=== PATIENT | female | born 1945 | race Caucasian/White ===

== ENCOUNTER 2017-03-21 07:06 | Outpatient (CLI) | payer OTHER ==
[~2017-03-21 07:06] MED LIST: TIZANIDINE HCL2 MG PO
== END 2017-03-21 07:18 | disposition home or self-care (01) ==
LOC: NUCLEAR 07:06
DX: R06.00 Dyspnea, unspecified (principal); R07.9 Chest pain, unspecified; I20.9 Angina pectoris, unspecified
CPT/HCPCS: 78452; 93017; A9500

== ENCOUNTER 2017-12-24 15:52 | Outpatient (CLI) | payer OTHER | END 2017-12-24 15:56 | disposition home or self-care (01) | LOC: RAD 15:52 | DX: M25.551 Pain in right hip (principal); M25.552 Pain in left hip; M25.561 Pain in right knee; M25.562 Pain in left knee; M25.512 Pain in left shoulder ==

== ENCOUNTER 2018-01-01 10:01 | Outpatient (CLI) | payer OTHER | END 2018-01-01 19:16 | disposition home or self-care (01) | LOC: LAB 10:01 | DX: H20.013 Primary iridocyclitis, bilateral (principal) ==

== ENCOUNTER 2018-01-02 12:30 | Outpatient (CLI) | payer OTHER | END 2018-01-02 13:40 | disposition home or self-care (01) | LOC: RAD 12:30 | DX: H20.013 Primary iridocyclitis, bilateral (principal) ==

== ENCOUNTER 2018-02-07 21:05 | Emergency (ER) | payer OTHER ==
[~2018-02-07] VITALS: Ht 157.5 cm; Wt 63.5 kg
[2018-02-07] MEDS ORDERED: AVAPRO300 MG (21:36)
[2018-02-07] MEDS ORDERED: ELIQUIS5 MG (21:36)
[2018-02-07] MEDS ORDERED: DILTIAZEM 24HR240 MG (21:37)
[2018-02-07] MEDS ORDERED: GLIPIZIDE XL2.5 MG (21:37)
[2018-02-07] MEDS ORDERED: RESTORIL30 M1 (21:38)
[2018-02-07] MEDS ORDERED: LIPITOR20 MG (21:38)
[2018-02-07] MEDS ORDERED: MILLIPRED DP5 M1 (21:40)
[2018-02-07] MEDS ORDERED: COMBIGAN EYE DRO5 ML (21:40)
[2018-02-07] MEDS ORDERED: TUSSI PRES-B L120 M1 (21:43)
== END 2018-02-07 23:21 | disposition home or self-care (01) ==
LOC: ER 21:05
DX: B34.9 Viral infection, unspecified (principal); J11.1 Influenza due to unidentified influenza virus with other respiratory manifestations

== ENCOUNTER 2018-11-03 13:27 | Outpatient (CLI) | payer OTHER ==
[~2018-11-03 13:27] MED LIST changes: +AVAPRO300 MG; +COMBIGAN EYE DRO5 ML; +DILTIAZEM 24HR240 MG; +ELIQUIS5 MG; +GLIPIZIDE XL2.5 MG; +LIPITOR20 MG; +MILLIPRED DP5 M1; +RESTORIL30 M1; +TUSSI PRES-B L120 M1
== END 2018-11-03 13:29 | disposition home or self-care (01) ==
LOC: RAD 13:27 → MAMO-SONO 13:45
DX: M19.041 Primary osteoarthritis, right hand (principal); R22.31 Localized swelling, mass and lump, right upper limb

== ENCOUNTER 2018-11-04 13:18 | Outpatient (CLI) | payer OTHER | END 2018-11-04 13:34 | disposition home or self-care (01) | LOC: NUCLEAR 13:18 | DX: M81.0 Age-related osteoporosis without current pathological fracture (principal) ==

== ENCOUNTER 2018-12-31 12:51 | Outpatient (CLI) | payer OTHER | END 2018-12-31 12:53 | disposition home or self-care (01) | LOC: TOM 12:51 | DX: R06.02 Shortness of breath (principal); J44.9 Chronic obstructive pulmonary disease, unspecified; J45.998 Other asthma ==

== ENCOUNTER → 2019-05-12 | Outpatient (CLI) | payer OTHER | END | disposition home or self-care (01) | LOC: MRI 09:51 | DX: M54.5 Low back pain (principal); M25.551 Pain in right hip; M25.552 Pain in left hip | CPT/HCPCS: 72148 ==

== ENCOUNTER 2019-09-09 09:43 | Outpatient (CLI) | payer OTHER ==
[~2019-09-09] VITALS: Ht 170.2 cm; Wt 61.7 kg
[2019-09-10] MEDS ORDERED: ROSUVASTATIN CA10 MG (09:43)
== END 2019-09-09 10:15 | disposition home or self-care (01) ==
LOC: OFIC 805 09:43
PROVIDERS: ATTEND Otolaryngology
DX: R07.0 Pain in throat (principal); R09.89 Other specified symptoms and signs involving the circulatory and respiratory systems; F45.8 Other somatoform disorders; K21.0 Gastro-esophageal reflux disease with esophagitis

== ENCOUNTER → 2019-12-28 | Outpatient (CLI) | payer OTHER ==
[~2019-12-28] MED LIST changes: +ROSUVASTATIN CA10 MG
== END | disposition home or self-care (01) ==
LOC: MRI 13:15
PROVIDERS: ATTEND Orthopaedic Surgery
DX: M25.561 Pain in right knee (principal); M25.551 Pain in right hip; M25.552 Pain in left hip
CPT/HCPCS: 73718

== ENCOUNTER 2020-08-07 10:44 | Outpatient (CLI) | payer OTHER | END 2020-08-07 10:56 | disposition home or self-care (01) | LOC: MRI 10:44 | DX: M54.5 Low back pain (principal); M13.0 Polyarthritis, unspecified; M47.22 Other spondylosis with radiculopathy, cervical region; M47.26 Other spondylosis with radiculopathy, lumbar region; M47.27 Other spondylosis with radiculopathy, lumbosacral region; M85.80 Other specified disorders of bone density and structure, unspecified site; M43.8X9 Other specified deforming dorsopathies, site unspecified; M41.56 Other secondary scoliosis, lumbar region | CPT/HCPCS: 72141 ==

== ENCOUNTER 2020-10-27 14:45 | Outpatient (CLI) | payer OTHER | END 2020-10-27 14:47 | disposition home or self-care (01) | LOC: RAD 14:45 | PROVIDERS: ATTEND Internal Medicine | DX: M25.561 Pain in right knee (principal) ==

== ENCOUNTER 2020-11-07 13:31 | Outpatient (CLI) | payer OTHER | END 2020-11-07 13:36 | disposition home or self-care (01) | LOC: NUCLEAR 13:31 | DX: M81.0 Age-related osteoporosis without current pathological fracture (principal); E55.9 Vitamin D deficiency, unspecified ==

== ENCOUNTER 2022-02-23 12:09 | Outpatient (CLI) | payer OTHER ==
[~2022-02-23 12:09] MED LIST changes: +CIPRO250 MG PO
== END 2022-02-23 12:10 | disposition home or self-care (01) ==
LOC: LAB 12:09
PROVIDERS: ATTEND Internal Medicine Gastroenterology
DX: Z11.52 Encounter for screening for COVID-19 (principal); Z20.822 Contact with and (suspected) exposure to COVID-19; Z20.828 Contact with and (suspected) exposure to other viral communicable diseases

== ENCOUNTER 2022-04-30 13:40 | Outpatient (CLI) | payer OTHER | END 2022-04-30 13:47 | disposition home or self-care (01) | LOC: SONOGRAMA 13:40 | PROVIDERS: ATTEND Internal Medicine | DX: E04.2 Nontoxic multinodular goiter (principal) ==

== ENCOUNTER 2023-03-21 12:38 | Emergency (ER) | payer OTHER ==
[~2023-03-21] VITALS: Ht 157.5 cm; Wt 53.1 kg
[2023-03-21] MEDS ORDERED: GLUMETZA500 MG PO (13:27)
[2023-03-21 14:18] LABS: HEMATOCRIT 32.6 % (36.0-45.00); HEMOGLOBIN 10.9 g/dL (12.0-15.00); MEAN CELL VOLUME 87.8 fL (80.00-100.00); MEAN CORPUSCULAR HEMOGLOBIN 29.4 pg (27.00-32.0); MEAN CORPUSCULAR HGB CONC 33.5 g/dl (32.0-36.0); PLATELET COUNT 195 K/uL (150-450); RED BLOOD COUNT 3.72 M/uL (4.00-6.00); RED CELL DISTRIBUTION WIDTH 13.3 % (11.5-14.5)
[2023-03-21 14:55] LABS: CREATININE SERUM 1.1 mg/dL (0.55-1.02); GFR 48.29; POTASSIUM 3.82 mEq/L (3.5-5.1)
[2023-03-21 15:02] LABS: INR 1.13; PARTIAL THROMBOPLASTIN TIME 32.4 SECONDS (22.0-34.0); PROTHROMBIN TIME 11.8 SECONDS (9.0-11.5)
== END 2023-03-21 16:25 | disposition home or self-care (01) ==
LOC: ER 12:38
PROVIDERS: Emergency Medicine
DX: R07.89 Other chest pain (principal); Z20.822 Contact with and (suspected) exposure to COVID-19

== ENCOUNTER 2024-05-06 14:03 | Outpatient (CLI) | payer OTHER ==
[~2024-05-06 14:03] MED LIST changes: +GLUMETZA500 MG PO
[2024-05-06 15:28] LABS: CREATININE SERUM 1.25 mg/dL (0.55-1.02); GFR 41.56
== END 2024-05-06 23:00 | disposition home or self-care (01) ==
LOC: LAB 14:03
PROVIDERS: ATTEND Radiology Diagnostic Radiology
DX: R13.10 Dysphagia, unspecified (principal)

== ENCOUNTER 2024-05-07 12:54 | Outpatient (CLI) | payer OTHER | END 2024-05-07 12:57 | disposition home or self-care (01) | LOC: TOM 12:54 | PROVIDERS: ATTEND Internal Medicine | DX: R13.19 Other dysphagia (principal) | CPT/HCPCS: 70491; Q9965 ==

== ENCOUNTER 2024-05-27 05:39 | Emergency (ER) | payer OTHER ==
[~2024-05-27] VITALS: Ht 157.5 cm; Wt 49.9 kg
[2024-05-27] MEDS ORDERED: METHYLPREDNISOLONE SOD SUCC 125 MG VIAL IV STA (07:09)
[2024-05-27] MEDS ORDERED: FAMOTIDINE/PF 20 MG/2 ML VIAL IV PUSH STA (07:09)
[2024-05-27] MEDS ORDERED: DIPHENHYDRAMINE HCL 50 MG/ML VIAL 1ML IV STA (07:09)
[2024-05-27] MEDS ORDERED: DIPHENHYDRAMINE HCL 50 MG/ML VIAL 1ML ONE (07:21)
[2024-05-27] MEDS ORDERED: METHYLPREDNISOLONE SOD SUCC 125 MG VIAL ONE (07:21)
[2024-05-27] MEDS ORDERED: FAMOTIDINE/PF 20 MG/2 ML VIAL ONE (07:21)
== END 2024-05-27 09:52 | disposition home or self-care (01) ==
LOC: ER 05:40
DX: L50.9 Urticaria, unspecified (principal); R21 Rash and other nonspecific skin eruption; I10 Essential (primary) hypertension; E11.9 Type 2 diabetes mellitus without complications; Z79.84 Long term (current) use of oral hypoglycemic drugs
CPT/HCPCS: 96365; 99282; J1200; J3490 ×2

== ENCOUNTER 2024-07-28 12:56 | Outpatient (CLI) | payer OTHER | END 2024-07-28 13:05 | disposition home or self-care (01) | LOC: TOM 12:56 | PROVIDERS: ATTEND Internal Medicine | DX: S09.90XA Unspecified injury of head, initial encounter (principal); R41.82 Altered mental status, unspecified ==

== ENCOUNTER 2024-09-14 08:45 | Outpatient (CLI) | payer OTHER | END 2024-09-14 08:47 | disposition home or self-care (01) | LOC: MRI 08:45 | DX: G30.8 Other Alzheimer's disease (principal) | CPT/HCPCS: 70551 ==

== ENCOUNTER 2024-12-20 13:09 | Outpatient (CLI) | payer OTHER | END 2024-12-20 13:14 | disposition home or self-care (01) | LOC: RAD 13:09 → SONOGRAMA 13:09 | PROVIDERS: ATTEND Orthopaedic Surgery | DX: M25.512 Pain in left shoulder (principal); M75.122 Complete rotator cuff tear or rupture of left shoulder, not specified as traumatic ==

== ENCOUNTER 2025-01-20 12:30 | Outpatient (CLI) | payer OTHER | END 2025-01-20 12:35 | disposition home or self-care (01) | LOC: NUCLEAR 12:30 | PROVIDERS: ATTEND Internal Medicine | DX: I87.2 Venous insufficiency (chronic) (peripheral) (principal) ==

== ENCOUNTER 2025-01-25 10:00 | Day surgery (SDC) | payer OTHER ==
[2025-01-21 09:58] VITALS: BP 150/80
[2025-01-21 10:48] LABS: URINE APPEARANCE Clear; URINE BILIRRUBIN Negative (NEGATIVE); URINE BLOOD Negative; URINE COLOR Yellow; URINE GLUCOSE Negative (NEGATIVE); URINE KETONE Negative (NEGATIVE); URINE LEUKOCYTE Negative; URINE NITRATE Negative; URINE PROTEIN Negative (NEGATIVE); URINE UROBILINOGEN 0.2 E.U./dl
[2025-01-21 10:49] LABS: URINE BACTERIA 6.8 uL (0.0-1933)
[2025-01-21 10:49] LABS: BASO % 0.6 % (0.1-1.2); EOS # 0.18 (0.04-0.54); EOS % 3.3 % (0.7-7.0); LYMPH # 1.50 (1.18-3.74); LYMPH % 27.9 % (19.3-53.1); MEAN PLATELET VOLUME 11.20 fl (9.4-12.4); MONO # 0.68 (0.24-0.82); NEUT # 2.98 (1.56-6.13); NEUT % 55.4 % (34.0-71.1); RED CELL DISTRIBUTION WIDTH 14.1 % (11.6-14.4)
[2025-01-21 10:54] LABS: MONO % 12.6 % (4.7-12.5)
[2025-01-21 11:24] LABS: INR 1.07
[2025-01-21 11:27] LABS: ALT/SGPT 31.0 U/L (12-78); AST/SGOT 25.0 U/L (15-37); BILIRUBIN TOTAL 0.56 mg/dL (0.3-1.2); BUN CREA RATIO 29.0 (7.0-25.0); CREATININE SERUM 1.03 mg/dL (0.55-1.02); GFR 51.82; GLOBULINA 2.6 G/DL (2.4-3.5); GLUCOSE FASTING 93.0 mg/dL (65-100); OSMOLALITY SERUM 296.0 MOSM/KG (275-295)
[2025-01-21 12:02] LABS: URINE CAST 0.00 uL (0.0-1.40); URINE EPITHELIAL CELLS 0.9 uL (0.0-38.8); URINE RBC 1.6 uL (0.0-20.8); URINE WBC 1.0 uL (0.0-23.2)
[~2025-01-25] VITALS: Ht 152.4 cm; Wt 54.4 kg
[2025-01-25] MEDS ORDERED: CEFAZOLIN SODIUM 1,000 MG VIAL ONE (10:19)
[2025-01-25] MEDS ORDERED: METHYLPREDNISOLONE ACETATE 80 MG/ML VIAL ONE (12:35)
[2025-01-25] MEDS ORDERED: EPINEPHRINE HCL/PF 1 MG/ML AMPUL ONE (12:36)
[2025-01-25] MEDS ORDERED: BUPIVACAINE HCL/MPF 0.5% 30ML VIAL ONE (12:36)
[2025-01-25] MEDS ORDERED: DEXAMETHASONE SODIUM PHOSPHATE 4 MG/ML VIAL ONE (13:33)
[2025-01-25] MEDS ORDERED: SUGAMMADEX SODIUM 200 MG/2 ML VIAL IV ONE (14:59)
[2025-01-25] MEDS ORDERED: PERCOCET 5-3251 EACH PO ×2 (15:18)
== END 2025-01-25 17:30 | disposition home or self-care (01) ==
LOC: CIR.AMB 10:00
PROVIDERS: ATTEND Orthopaedic Surgery
DX: M75.122 Complete rotator cuff tear or rupture of left shoulder, not specified as traumatic (principal); M13.812 Other specified arthritis, left shoulder; M75.42 Impingement syndrome of left shoulder; M75.52 Bursitis of left shoulder